=== PATIENT | female | born 1940 | race Caucasian/White ===

== ENCOUNTER 2019-05-08 08:46 | Outpatient (CLI) | payer MEDICARE ==
--- NOTE | 2019-05-08 09:10 | RAD ---
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 There is prominent multilevel disc space narrowing with degenerative endplate change and osteophyte f ormation throughout the lumbar spine. Neutral lateral imaging demonstrates prominent disc space narrowing at L1-2 and L2-3. Anterolisthesis on neutral imaging measures approximately 6 mm at L5-S1 and approximately 4 mm at L4-5. Mild retrolisthesis at L3-4 measures 4 mm. On the flexion imaging the anterolisthesis at L4-5 measures approximately 4 mm and at L5-S1 measures approximately 8 mm. The L3-4 retrolisthesis is not appreciated on the flexion imaging. Extension imaging demonstrates anterolisthesis at L4-5 measuring 4 mm and at L5-S1 measuring 9 mm. Re trolisthesis on extension imaging at L3-4 measures 4 mm. Multilevel lower lumbar spine facet hypertrophic change noted. No acute osseous abnormality. IMPRESSION: Multilevel significant degenerative change within the lower lumbar spine as described abo ve.
== END 2019-05-08 08:47 | disposition home or self-care (01) ==
LOC: BICRAD 08:46
PROVIDERS: ATTEND Neurological Surgery
DX: M48.061 Spinal stenosis, lumbar region without neurogenic claudication (principal); M47.26 Other spondylosis with radiculopathy, lumbar region
CPT/HCPCS: 72110

== ENCOUNTER 2021-08-08 08:14 | Outpatient (CLI) | payer MEDICARE ==
[2021-08-08] MEDS ORDERED: Magnevist 469MG/ML 20 ML VIAL ONE (09:07)
== END 2021-08-08 08:15 | disposition home or self-care (01) ==
LOC: MRI 08:14
PROVIDERS: ATTEND Specialist
DX: M51.16 Intervertebral disc disorders with radiculopathy, lumbar region (principal); Z98.890 Other specified postprocedural states
CPT/HCPCS: 72158; 82565; A9579